=== PATIENT | female | born 1950 | race Asian ===

== ENCOUNTER 2017-09-20 06:34 | Day surgery (SDC) | payer MEDICARE, OTHER ==
[~2017-09-20] VITALS: Ht 157.5 cm; Wt 57.7 kg
[~2017-09-20 06:34] MED LIST: SODIUM CHLORIDE 0.9% 1,000 ML IV ONE
[2017-09-20] MEDS ORDERED: LIDOCAINE HCL 4% 50 ML SOLUTION TP ONE (06:35)
[2017-09-20] MEDS ORDERED: LIDOCAINE HCL 2% 30 ML JELLY TP ONE (06:35)
[2017-09-20] MEDS ORDERED: EPINEPHrine 1:1,000 [1 MG/ML] AMP IM ONE (06:35)
[2017-09-20] MEDS ORDERED: BENZOCAINE 20% 50 MCG/SPRAY 57 GM TP ONE (06:35)
[2017-09-20] MEDS ORDERED: MONT10TA21 PO (06:51)
[2017-09-20] MEDS ORDERED: GABA-531 PO (06:51)
[2017-09-20] MEDS ORDERED: FAMO20 PO (06:51)
[2017-09-20] MEDS ORDERED: SIMV-261 PO (06:51)
[2017-09-20] MEDS ORDERED: ALBU8.5H8 IH (06:51)
[2017-09-20] MEDS ORDERED: ASPI81TA42 PO (06:51)
[2017-09-20] MEDS ORDERED: SODIUM CHLORIDE 0.9% 1,000 ML IV ONE (07:00)
[2017-09-20] MEDS ORDERED: MIDAZOLAM HCL 2 MG/2 ML VIAL ONE (08:06)
[2017-09-20] MEDS ORDERED: FentaNYL CITRATE-PF 100 MCG/2 ML VIAL ONE (08:06)
[2017-09-20] MEDS ORDERED: MethylPREDNISolone SOD SUCC 125 MG/2 ML VIAL IVP ONE (08:30)
[2017-09-20] MEDS ORDERED: MethylPREDNISolone SOD SUCC 125 MG/2 ML VIAL ONE (08:42)
[2017-09-20] MEDS ORDERED: OXYGEN THERAPY IH SCH (20:00)
== END 2017-09-20 09:50 | disposition home or self-care (01) ==
LOC: SURGERY 06:34 → EDSEX 08:30 → SURGERY 09:50
PROVIDERS: ATTEND Internal Medicine Critical Care Medicine
DX: J38.4 Edema of larynx (principal); B37.0 Candidal stomatitis; I10 Essential (primary) hypertension; E78.00 Pure hypercholesterolemia, unspecified; Z96.651 Presence of right artificial knee joint; Z79.82 Long term (current) use of aspirin; Z79.899 Other long term (current) drug therapy; Z98.890 Other specified postprocedural states
CPT/HCPCS: 31623; 31624; 71045; 87015; 87070; 87205; 87220; 88108; 88312; J0171; J2250; J2930; J3010; J7030

== ENCOUNTER → 2018-12-15 | Day surgery (SDC) | payer OTHER ==
[~2018-12-15] VITALS: Ht 154.9 cm; Wt 62.7 kg
[~2018-12-15] MED LIST changes: +ALBU8.5H8 IH; +ALBUTEROL SULFATE 2.5 MG/0.5 ML NEB SOLUTION NEB ONE; +ASPI81TA40 PO; +BENZOCAINE 20% 50 MCG/SPRAY 57 GM TP ONE; +FAMO20 PO; +FentaNYL CITRATE-PF 100 MCG/2 ML VIAL ONE; +GABA-531 PO; +LIDOCAINE 2% 30 ML JELLY TP ONE; +LIDOCAINE 4% 50 ML SOLUTION TP ONE; +MIDAZOLAM HCL 2 MG/2 ML VIAL ONE; +MONT10TA21 PO; +MethylPREDNISolone SOD SUCC 125 MG/2 ML VIAL IVP ONE; +MethylPREDNISolone SOD SUCC 125 MG/2 ML VIAL ONE; +OXYGEN THERAPY IH SCH; +SIMV-261 PO
== END | disposition home or self-care (01) ==
LOC: SURGERY 06:02
PROVIDERS: ATTEND Internal Medicine Critical Care Medicine
DX: J38.4 Edema of larynx (principal); B37.0 Candidal stomatitis; Z96.659 Presence of unspecified artificial knee joint; E78.00 Pure hypercholesterolemia, unspecified; Z79.82 Long term (current) use of aspirin
CPT/HCPCS: 31623; 31624; 71045; 87015; 87070; 87101; 87205; 87206; 87220; 88108; 88312; J2250; J2930; J3010; J7030

== ENCOUNTER 2019-08-17 06:15 | Day surgery (SDC) | payer OTHER ==
[~2019-08-17] VITALS: Ht 157.5 cm; Wt 59.0 kg
[~2019-08-17 06:15] MED LIST changes: -ALBUTEROL SULFATE 2.5 MG/0.5 ML NEB SOLUTION NEB ONE; -BENZOCAINE 20% 50 MCG/SPRAY 57 GM TP ONE; -FentaNYL CITRATE-PF 100 MCG/2 ML VIAL ONE; -LIDOCAINE 2% 30 ML JELLY TP ONE; -LIDOCAINE 4% 50 ML SOLUTION TP ONE; -MIDAZOLAM HCL 2 MG/2 ML VIAL ONE; -MethylPREDNISolone SOD SUCC 125 MG/2 ML VIAL IVP ONE; -MethylPREDNISolone SOD SUCC 125 MG/2 ML VIAL ONE; -OXYGEN THERAPY IH SCH; -SODIUM CHLORIDE 0.9% 1,000 ML IV ONE; +SODIUM CHLORIDE 0.9% 1,000 ML ONE
[2019-08-17] MEDS ORDERED: LIDOCAINE 2% 5 ML JELLY TP ONE (06:16)
[2019-08-17] MEDS ORDERED: BENZOCAINE 20% 50 MCG/SPRAY 57 GM TP ONE (06:16)
[2019-08-17] MEDS ORDERED: ALBUTEROL SULFATE 2.5 MG/0.5 ML NEB SOLUTION NEB ONE (06:16)
[2019-08-17] MEDS ORDERED: LIDOCAINE 2% 30 ML JELLY TP ONE (06:16)
[2019-08-17] MEDS ORDERED: LIDOCAINE 4% 50 ML SOLUTION TP ONE (06:16)
[2019-08-17] MEDS ORDERED: SODIUM CHLORIDE 0.9% 1,000 ML IV ONE (06:30)
[2019-08-17] MEDS ORDERED: FentaNYL CITRATE-PF 100 MCG/2 ML VIAL ONE (07:49)
[2019-08-17] MEDS ORDERED: MIDAZOLAM HCL 2 MG/2 ML VIAL ONE (07:49)
[2019-08-17 08:10] LABS: GLUCOMETER DEV NAME(LOC) SDS.; GLUCOSE,POINT OF CARE 127 MG/DL (70-110)
[2019-08-17] MEDS ORDERED: GLIP5 PO (08:15)
[2019-08-17] MEDS ORDERED: BENZ100C68 PO (08:15)
[2019-08-17] MEDS ORDERED: ROSU10TA22 PO (08:15)
[2019-08-17] MEDS ORDERED: DULO30CA2 PO (08:15)
[2019-08-17] MEDS ORDERED: MethylPREDNISolone SOD SUCC 125 MG/2 ML VIAL IVP ONE (08:45)
[2019-08-17] MEDS ORDERED: MethylPREDNISolone SOD SUCC 125 MG/2 ML VIAL ONE (09:34)
[2019-08-17] MEDS ORDERED: OXYGEN THERAPY IH SCH (20:00)
== END 2019-08-17 10:45 | disposition home or self-care (01) ==
LOC: SURGERY 06:15
PROVIDERS: ATTEND Internal Medicine Critical Care Medicine
DX: R05 Cough (principal); R91.1 Solitary pulmonary nodule; J34.89 Other specified disorders of nose and nasal sinuses; J98.8 Other specified respiratory disorders; J38.4 Edema of larynx; B37.0 Candidal stomatitis; E11.9 Type 2 diabetes mellitus without complications; E78.00 Pure hypercholesterolemia, unspecified; M19.90 Unspecified osteoarthritis, unspecified site; F34.9 Persistent mood [affective] disorder, unspecified; Z79.899 Other long term (current) drug therapy; R19.00 Intra-abdominal and pelvic swelling, mass and lump, unspecified site
CPT/HCPCS: 31623; 31624; 71045; 82962; 87070 ×2; 87101; 87206; 87220; 87252 ×2; 88184; 88185; J2250; J2930; J3010; J7030; 87015; 87205; 88108; 88312

== ENCOUNTER 2021-12-25 06:12 | Day surgery (SDC) | payer OTHER ==
[~2021-12-25] VITALS: Ht 154.9 cm; Wt 62.7 kg
[~2021-12-25 06:12] MED LIST changes: +BENZ100C68 PO; +DULO-114 PO; -FAMO20 PO; +GABA-1181 PO; -GABA-531 PO; +GLIP5TAB12 PO; +MONT-35 PO; -MONT10TA21 PO; +ROSU10TA72 PO; -SIMV-261 PO; -SODIUM CHLORIDE 0.9% 1,000 ML ONE
[2021-12-25] MEDS ORDERED: BENZOCAINE 20% 50 MCG/SPRAY 57 GM TP ONE (06:13)
[2021-12-25] MEDS ORDERED: LIDOCAINE 2% 5 ML JELLY TP ONE (06:13)
[2021-12-25] MEDS ORDERED: LIDOCAINE 4% 50 ML SOLUTION TP ONE (06:13)
[2021-12-25 07:00] LABS: COVID AG,FIA SOURCE NASAL SWAB
[2021-12-25] MEDS ORDERED: SODIUM CHLORIDE 0.9% 1,000 ML IV ONE (07:00)
[2021-12-25] MEDS ORDERED: SODIUM CHLORIDE 0.9% 10 ML ONE (07:20)
[2021-12-25] MEDS ORDERED: SODIUM CHLORIDE 0.9% 1,000 ML ONE (07:27)
[2021-12-25] MEDS ORDERED: BUDE10.26 IH (07:37)
[2021-12-25] MEDS ORDERED: [UNRECOGNIZED DRUG - CODE] PO (07:37)
[2021-12-25] MEDS ORDERED: FentaNYL CITRATE PF 100 MCG/2 ML VIAL ONE (07:46)
[2021-12-25] MEDS ORDERED: MIDAZOLAM HCL 5 MG/ML VIAL ONE (07:47)
[2021-12-25 08:38] LABS: GLUCOMETER DEV NAME(LOC) SDS.; GLUCOSE,POINT OF CARE 118 MG/DL (70-110)
[2021-12-25] MEDS ORDERED: MethylPREDNISolone SOD SUCC 125 MG/2 ML VIAL IVP ONE (09:00)
[2021-12-25] MEDS ORDERED: MethylPREDNISolone SOD SUCC 125 MG/2 ML VIAL ONE (09:25)
[2021-12-25] MEDS ORDERED: OXYGEN THERAPY IH SCH (20:00)
== END 2021-12-25 13:10 | disposition home or self-care (01) ==
LOC: SURGERY 06:12
PROVIDERS: ATTEND Internal Medicine Critical Care Medicine
DX: J38.4 Edema of larynx (principal); B37.0 Candidal stomatitis; E78.00 Pure hypercholesterolemia, unspecified; J45.909 Unspecified asthma, uncomplicated; M17.0 Bilateral primary osteoarthritis of knee; Z79.899 Other long term (current) drug therapy; Z98.890 Other specified postprocedural states
CPT/HCPCS: 31623; 31624; 71045; 82962; 87015; 87070; 87101; 87206; 87220; 87426; 88184; 88185; C9803; J2250; J2930; J3010; J7030; 87186; 87188; 88108; 88305; Z7610